=== PATIENT | male | born 1995 | race Caucasian/White ===

== ENCOUNTER 2017-10-01 18:14 | Emergency (ER) | payer OTHER ==
[~2017-10-01] VITALS: Ht 170.2 cm; Wt 59.0 kg
--- NOTE | 2017-10-01 18:27 | NUR ---
CALLED PATIENT, PT NOT IN ER LOBBY, WENT OUTSIDE TO CALL PATIENT AND NO ANSWER. PATIENT LEFT WITHOUT BEING SEEN BY DR. PRO. NO FURTHER CARE PROVIDED FOR PATIENT.
[2017-10-01 18:42] VITALS: BP 121/78
--- NOTE | 2017-10-01 20:58 | NUR ---
PT AMBULATED TO OF 3
--- NOTE | 2017-10-01 21:25 | NUR ---
PT HAS HAD COUGH X1 MONTH WAS SEEN IN [place] FOR SAME SYMPTOMS 1 MONTH AGO BUT STILL HAS COUGH. RR EVEN AND UNLABORED, BS DIMINISHED THROUGHOUT. PT STATES HE HAS DRY COUGH AND PRODUCTIVE COUGH "SOMETIMES" W/ GREEN SPUTUM. NO PMH
--- NOTE | 2017-10-01 23:23 | NUR ---
Patient discharged with v/s stable. Written and verbal after care instructions given and explained. Patient alert, oriented and verbalized understanding of instructions. Ambulatory with steady gait. All questions addressed prior to discharge. ID band removed. Patient advised to follow up with PMD. Rx of AZITHROMYCIN, GUAIFENESIN given. Patient educated on indication of medication including possible reaction and side effects. Opportunity to ask questions provided and answered.
[2017-10-01 23:25] VITALS: BP 115/68
== END 2017-10-01 23:23 | disposition home or self-care (01) ==
LOC: MED 18:14
DX: J20.9 Acute bronchitis, unspecified (principal)
CPT/HCPCS: 71046; 99284